=== PATIENT | female | born 1965 | race Caucasian/White ===

== ENCOUNTER 2019-08-29 05:07 | Emergency (ER) | payer OTHER ==
[~2019-08-29] VITALS: Ht 152.4 cm; Wt 54.4 kg
[2019-08-29 05:34] VITALS: Ht 152.4 cm; Wt 54.4 kg
[2019-08-29 06:49] VITALS: BP 101/70
== END 2019-08-29 06:49 | disposition home or self-care (01) ==
LOC: ED 05:07
DX: U07.1 COVID-19 (principal)
CPT/HCPCS: 87804; Q0092; U0003-CS

== ENCOUNTER 2020-02-06 17:49 | Emergency (ER) | payer OTHER ==
[~2020-02-06] VITALS: Ht 154.9 cm; Wt 62.6 kg
[2020-02-06 18:00] VITALS: BP 143/92; Ht 154.9 cm; Wt 62.6 kg
== END 2020-02-06 21:10 | disposition home or self-care (01) ==
LOC: ED 17:49
DX: M06.9 Rheumatoid arthritis, unspecified (principal); I10 Essential (primary) hypertension; E11.9 Type 2 diabetes mellitus without complications; Z98.890 Other specified postprocedural states

== ENCOUNTER 2020-03-18 15:52 | Emergency (ER) | payer OTHER ==
[~2020-03-18] VITALS: Ht 154.9 cm; Wt 63.5 kg
[2020-03-18 16:21] VITALS: Ht 154.9 cm; Wt 63.5 kg
[2020-03-18 17:35] LABS: BASOPHIL % 0.4 % (0.2-1.3); PLATELET COUNT 234 x10^3mcL (179-408); RED CELL DISTRIBUTION WIDTH 14.5 % (12.3-17.7)
[2020-03-18 17:48] LABS: CALCIUM 9.3 mg/dL (8.5-10.1); CARBON DIOXIDE 27.1 mmol/L (21-32); CHLORIDE SERUM 103 mmol/L (98-107); GFR1 > 60 mL/min; GLUCOSE SERUM 223 mg/dL (74-106); SODIUM SERUM 140 mmol/L (136-145)
[2020-03-18 17:55] LABS: ALBUMIN 3.4 g/dL (3.4-5.0); ALKALINE PHOSPHATASE 84 U/L (46-116); ALT/SGPT 30 U/L (14-59); AST/SGOT 18 U/L (15-37); CHOLESTEROL 181 mg/dL (<200); HDL CHOLESTEROL 46 mg/dL (40-60); LIPASE 233 IU/L (73-393); TOTAL PROTEIN, SERUM 7.4 g/dL (6.4-8.2)
[2020-03-18 18:48] LABS: microscopic required? NO
[2020-03-18 19:17] LABS: urine erythrocyte NEGATIVE (NEGATIVE)
[2020-03-18 19:39] LABS: AMPHETAMINE QUAL UR NONE DETECTED (See below)
[2020-03-18 22:34] VITALS: BP 123/88
== END 2020-03-18 22:40 | disposition home or self-care (01) ==
LOC: ED 15:52
PROVIDERS: Emergency Medicine
DX: R07.89 Other chest pain (principal); R42 Dizziness and giddiness; F12.20 Cannabis dependence, uncomplicated; E11.9 Type 2 diabetes mellitus without complications; I10 Essential (primary) hypertension; M06.9 Rheumatoid arthritis, unspecified
CPT/HCPCS: 82962; 83880; J7030; J8597; U0003